=== PATIENT | male | born 1985 | race Asian ===

== ENCOUNTER 2017-01-27 19:54 | Emergency (ER) | payer OTHER ==
[~2017-01-27] VITALS: Ht 175.3 cm; Wt 79.9 kg
[2017-01-27 19:57] VITALS: TEMP 36.4; Ht 175.3 cm; Wt 79.9 kg
[2017-01-27] MEDS: KETOROLAC TROMETHAMINE 60 MG/2 ML VIAL IM STA ×2 (20:33→20:39)
--- NOTE | 2017-01-27 21:09 | DIAGNOSTIC IMAGING REPORT ---
ABD/PELVIS WITHOUT FOR STONE HISTORY: 31 years-old Male acute right-sided low back pain COMPARISON: None available TECHNIQUE: Multiple axial CT images of the abdomen and pelvis were obtained without IV contrast. A dose lowering technique was used consistent with the principals of BARNEY. FINDINGS: Lung bases are generally clear. There is no evidence of pneumoperitoneum. Imaged inferior cardiac chambers are unremarkable. Multiple low attenuating lesions throughout the hepatic parenchyma are seen, largest of which measures up to 1.3 cm. These are nonspecific, however would statistically favor cysts. Gallbladder is contracted. Spleen, pancreas and adrenal glands are within normal limits. Left kidney is unremarkable. There is mild right-sided hydroureteronephrosis secondary to a 2 x 2 x 2 mm calculus in the region of the posterior central urinary bladder, possibly within the intramural portion of the right ureterovesicular junction alternatively freely present within the ureter bladder lumen. No additional renal calculi are identified. Abdominal aorta is normal in course and caliber. No bulky retroperitoneal adenopathy. There is no bowel obstruction. Sigmoid colon is collapsed. No evidence of acute appendicitis. Soft tissues are unremarkable. Bones are intact. IMPRESSION: Mild right-sided hydroureteronephrosis with 2 mm stone in the region of the dependent central urinary bladder lumen, possibly within the distal portion of the intramural right ureterovesicular junction or alternatively freely present within the urinary bladder lumen. The above report was generated using voice recognition software. It may contain grammatical, syntax or spelling errors. Electronically signed by: Felice Rivera M.D. 01/27/2017 9:07 PM Dictated Date/Time: 01/27/2017 9:01 PM
[2017-01-27 21:29] LABS: MANUAL MICROSCOPIC REQUIRED? NO; REVIEW REQ? NO; URINE APPEARANCE CLEAR (CLEAR); URINE BILIRUBIN NEG (NEG); URINE COLOR YELLOW; URINE NITRITE NEG (NEG); URINE PH 6.5 (4.5-7.5); URINE SPECIFIC GRAVITY 1.024 (1.000-1.030); UROBILINOGEN NEG (NEG); ZZUR CULT IF INDIC CLEAN CATCH NO
[2017-01-27] MEDS ORDERED: TAMSULOSIN HCL 0.4 MG CAP PO ONE (21:30)
--- NOTE | 2017-01-27 21:42 | EMERGENCY ROOM VISIT NOTE ---
History Report prepared by [place]: Kasi Sears Under the Supervision of: Dr. Carin Norris D.O. First contact with patient: 20:07 Chief Complaint: FLANK PAIN Stated Complaint: LOW BACK PAIN, RIGHT History of Present Illness The patient is a 31 year old male who presents to the Emergency Room with complaints of intermittent right flank pain beginning this morning. He states that his pain began suddenly. The patient states that his pain was present this morning, resolved, and returned about an hour ago. He states that his pain again resolved upon arrival. He states that the pain radiates into his groin occasionally. The patient notes that his urine appears more yellow than usual. He denies any fevers, chills, vomiting, nausea, diarrhea, or constipation. He denies any recent trauma or straining. He has a family history of kidney stones. The patient states that he had an unspecified kidney problem as a child , but has had no problems with it ever since. He denies any recent changes to his medications. Source of History: patient Onset: This morning Position: other (right flank) Timing: intermittent Associated Symptoms: + urinary symptoms (Yellow in appearance), No fevers, No chills, No nausea, No vomiting, No abdominal pain, No diarrhea Note: Additional symptoms: pain radiating into his groin occasionally. Review of Systems See HPI for pertinent positives & negatives. A total of 10 systems reviewed and were otherwise negative. Past Medical & Surgical Medical Problems: (1) No Known Active Medical Problems Family History No pertinent family history stated. Social History Smoking Status: Former Smoker Physical Exam Vital Signs Date Time Temp Pulse Resp B/P (MAP) Pulse Ox O2 Delivery O2 Flow Rate FiO2 01/27/17 22:00 63 18 117/62 98 01/27/17 19:57 36.4 74 18 115/76 96 Room Air Physical Exam GENERAL: alert, well appearing, well nourished, no distress, non-toxic EYE EXAM: normal conjunctiva, PERRL and EOM's grossly intact OROPHARYNX: no exudate, no erythema, lips, buccal mucosa, and tongue normal and mucous membranes are moist NECK: supple, no nuchal rigidity, no adenopathy, non-tender LUNGS: Clear to auscultation. Normal chest wall mechanics, no w/r/r HEART: no murmurs, S1 normal and S2 normal, no JVD ABDOMEN: abdomen soft, non-tender, normo-active bowel sounds, no masses, no rebound or guarding. BACK: Back is symmetrical on inspection and there is no deformity, no midline tenderness, no CVA tenderness. SKIN: no rashes and no bruising UPPER EXTREMITIES: upper extremities are grossly normal. LOWER EXTREMITIES: No pitting edema. NEURO EXAM: Normal sensorium, cranial nerves II-XII grossly intact, normal speech, no gross weakness of arms, no gross weakness of legs. Medical Decision & Procedures ER Provider Diagnostic Interpretation: Radiology results have been interpreted by the radiologist and reviewed by me. ABD/PELVIS WITHOUT FOR STONE FINDINGS: Lung bases are generally clear. There is no evidence of pneumoperitoneum. Imaged inferior cardiac chambers are unremarkable. Multiple low attenuating lesions throughout the hepatic parenchyma are seen, largest of which measures up to 1.3 cm. These are nonspecific, however would statistically favor cysts. Gallbladder is contracted. Spleen, pancreas and adrenal glands are within normal limits. Left kidney is unremarkable. There is mild right-sided hydroureteronephrosis secondary to a 2 x 2 x 2 mm calculus in the region of the posterior central urinary bladder, possibly within the intramural portion of the right ureterovesicular junction alternatively freely present within the ureter bladder lumen. No additional renal calculi are identified. Abdominal aorta is normal in course and caliber. No bulky retroperitoneal adenopathy. There is no bowel obstruction. Sigmoid colon is collapsed. No evidence of acute appendicitis. Soft tissues are unremarkable. Bones are intact. IMPRESSION: Mild right-sided hydroureteronephrosis with 2 mm stone in the region of the dependent central urinary bladder lumen, possibly within the distal portion of the intramural right ureterovesicular junction or alternatively freely present within the urinary bladder lumen. The above report was generated using voice recognition software. It may contain grammatical, syntax or spelling errors. Electronically signed by: Felice Rivera M.D. Laboratory Results Test 01/27/17 20:30 Urine Color YELLOW Urine Appearance CLEAR (CLEAR) Urine pH 6.5 (4.5-7.5) Urine Specific [place] 1.024 (1.000-1.030) Urine Protein NEG (NEG) Urine Glucose (UA) NEG (NEG) Urine Ketones TRACE (NEG) Urine Occult Blood 3+ (NEG) Urine Nitrite NEG (NEG) Urine Bilirubin NEG (NEG) Urine Urobilinogen NEG (NEG) Urine Leukocyte Esterase NEG (NEG) Urine WBC (Auto) 1-5 /hpf (0-5) Urine RBC (Auto) >30 /hpf (0-4) Urine Hyaline Casts (Auto) 1-5 /lpf (0-5) Urine Epithelial Cells (Auto) 5-10 /lpf (0-5) Urine Bacteria (Auto) NEG (NEG) Laboratory results per my review. Medications Administered Medications (Trade) Dose Ordered Sig/Jessica Route Start Time Stop Time Status Last Admin Dose Admin Tamsulosin HCl (Flomax Cap) 0.4 mg NOW ONCE PO 01/27/17 21:30 01/27/17 21:31 DC 01/27/17 21:37 0.4 MG ED Course 2024: The patient was evaluated in room C1B. A complete history and physical exam was performed. 2032: Ordered Toradol Inj 60 mg IM. 2129: Ordered Flomax Cap 0.4 mg PO. 2139: Upon reevaluation, the patient is feeling better. I discussed the findings and the treatment plan with the patient. He verbalizes agreement and understanding. He was discharged home. Medical Decision Differential diagnosis: Etiologies such as renal colic, appendicitis, diverticulitis, mesenteric ischemia, aortic pathology, infections, inflammatory bowel disease, PUD, biliary pathology, UTI, as well as others were entertained. Pt with kidney stone seen on CT. Discussed all results with pt. No other acute pathology noted. UA without evidence of infection. Pt refused pain medication here, states no recurrent pain. Discussed sx to watch/return for, hydration, f/u with PCP, pain meds. He verbalized understanding and was agreeable with plan. Medication Reconcilliation Current Medication List: was personally reviewed by me Blood Pressure Screening Patient's blood pressure: Normal blood pressure Impression Primary Impression: Right flank pain Additional Impressions: Renal colic Kidney stone Scribe Attestation The scribe's documentation has been prepared under my direction and personally reviewed by me in its entirety. I confirm that the note above accurately reflects all work, treatment, procedures, and medical decision making performed by me. Departure Information Dispostion Home / Self-Care Patient Instructions My [facility] Additional Instructions Please drink plenty of water. You should be able to pass her stone spontaneously when you urinate. Please use the strainer to watch for passage of the stone. The stone may then be taken to your family doctor or urologist. You may use Tylenol or ibuprofen as needed for any additional pain. If you develop worsening pain, vomiting, fevers, or unable to urinate, noticed blood in your urine, or have any other new concerns, please return to the emergency room. Problem Qualifiers
[2017-01-27 22:00] VITALS: BP 117/62; PULSE 63; O2SAT 98
== END 2017-01-27 21:58 | disposition home or self-care (01) ==
LOC: C.EDB 19:56 → C.EDC 21:58
DX: N23 Unspecified renal colic (principal); N20.0 Calculus of kidney; Z84.1 Family history of disorders of kidney and ureter; Z87.891 Personal history of nicotine dependence